=== PATIENT | male | born 1965 | race African-American/Black ===

== ENCOUNTER 2019-08-19 17:56 | Emergency (ER) | payer SELFPAY ==
[~2019-08-19] VITALS: Ht 170.2 cm; Wt 63.5 kg
[2019-08-19 18:52] VITALS: BP 97/60
[2019-08-19] MEDS ORDERED: ORPHENADRINE CITRATE 60 MG/2 ML VIAL. IM ONE (19:30)
[2019-08-19] MEDS ORDERED: KETOROLAC 30 MG/ML VIAL. IM ONE (19:30)
[2019-08-19] MEDS ORDERED: LIDOCAINE (700MG/PATCH) PATCH. TD ONE (19:30)
[2019-08-19 20:30] LABS: BILIRUBIN,URINE SMALL (NEG); CLARITY,URINE CLEAR; COLOR,URINE YELLOW; NITRITE,URINE NEGATIVE (NEG); PH,URINE 5.5; PROTEIN,URINE NEGATIVE (NEG-TRACE)
[2019-08-19 20:49] LABS: BACTERIA,URINE FEW /HPF (0-FEW); SQUAMOUS EPITHELIAL CELL,UR OCC /LPF
[2019-08-19] MEDS ORDERED: NAPR-695 PO (21:21)
[2019-08-19] MEDS ORDERED: LIDO700A21 TP (21:21)
[2019-08-19] MEDS ORDERED: ORPH100T PO (21:21)
--- NOTE | 2019-08-19 21:21 | PHYS DOC ---
Past Medical History Past Medical History: No Pertinent History Alcohol Use: Occasionally Drug Use: Marijuana Adult General Chief Complaint Chief Complaint: BACK PAIN OR INJURY HPI HPI Patient is a 54 year old [f__sex] who presents with [] Review of Systems Review of Systems Constitutional: Denies fever or chills [] Eyes: Denies change in visual acuity, redness, or eye pain [] HENT: Denies nasal congestion or sore throat [] Respiratory: Denies cough or shortness of breath [] Cardiovascular: No additional information not addressed in HPI [] GI: Denies abdominal pain, nausea, vomiting, bloody stools or diarrhea [] : Denies dysuria or hematuria [] Musculoskeletal: Denies back pain or joint pain [] Integument: Denies rash or skin lesions [] Neurologic: Denies headache, focal weakness or sensory changes [] Endocrine: Denies polyuria or polydipsia [] All other systems were reviewed and found to be within normal limits, except as documented in this note. Current Medications Current Medications Current Medications Medications (Trade) Dose Ordered Sig/Servando Start Time Stop Time Status Last Admin Dose Admin Ketorolac Tromethamine (Toradol 30mg Vial) 30 mg 1X ONCE 08/19/19 19:30 08/19/19 20:29 DC 08/19/19 20:26 30 MG Lidocaine (Lidoderm) 1 patch 1X ONCE 08/19/19 19:30 08/19/19 20:29 DC 08/19/19 20:25 1 PATCH Orphenadrine Citrate (Norflex) 60 mg 1X ONCE 08/19/19 19:30 08/19/19 20:29 DC 08/19/19 20:25 60 MG Allergies Allergies Allergies Coded Allergies Type Severity Reaction Last Updated Verified No Known Drug Allergies 08/19/19 No Physical Exam Physical Exam Constitutional: Well developed, well nourished, no acute distress, non-toxic appearance. [] HENT: Normocephalic, atraumatic, bilateral external ears normal, oropharynx moist, no oral exudates, nose normal. [] Eyes: PERRLA, EOMI, conjunctiva normal, no discharge. [] Neck: Normal range of motion, no tenderness, supple, no stridor. [] Cardiovascular:Heart rate regular rhythm, no murmur [] Lungs & Thorax: Bilateral breath sounds clear to auscultation [] Abdomen: Bowel sounds normal, soft, no tenderness, no masses, no pulsatile masses. [] Skin: Warm, dry, no erythema, no rash. [] Back: No tenderness, no CVA tenderness. [] Extremities: No tenderness, no cyanosis, no clubbing, ROM intact, no edema. [] Neurologic: Alert and oriented X 3, normal motor function, normal sensory function, no focal deficits noted. [] Psychologic: Affect normal, judgement normal, mood normal. [] Current Patient Data Vital Signs Vital Signs Date Time Temp Pulse Resp B/P (MAP) Pulse Ox O2 Delivery O2 Flow Rate FiO2 08/19/19 18:52 88 16 97/60 (72) 94 Room Air Lab Values Laboratory Tests Test 08/19/19 20:16 Urine Collection Type Unknown Urine Color Yellow Urine Clarity Clear Urine pH 5.5 Urine Specific [place] >=1.030 Urine Protein Negative mg/dL (NEG-TRACE) Urine Glucose (UA) Negative mg/dL (NEG) Urine Ketones (Stick) Trace mg/dL (NEG) Urine Blood Negative (NEG) Urine Nitrite Negative (NEG) Urine Bilirubin Small (NEG) Urine Urobilinogen Dipstick 1.0 mg/dL (0.2 mg/dL) Urine Leukocyte Esterase Negative (NEG) Urine RBC 1-2 /HPF (0-2) Urine WBC 1-4 /HPF (0-4) Urine Squamous Epithelial Cells Occ /LPF Urine Bacteria Few /HPF (0-FEW) Urine Mucus Slight /LPF EKG EKG [] Radiology/Procedures Radiology/Procedures [] Course & Med Decision Making Course & Med Decision Making Pertinent Labs and Imaging studies reviewed. (See chart for details) [] Dragon Disclaimer Dragon Disclaimer This electronic medical record was generated, in whole or in part, using a voice recognition dictation system. Departure Departure Impression: Primary Impression: Sciatica Disposition: 01 HOME, SELF-CARE Condition: STABLE Referrals: NO PCP (PCP) JOZEF MARTIN MD Patient Instructions: Sciatica, [id number] Additional Instructions: ICE area of pain 20 min on then leave off for next 20 min as needed for next few days. Scripts Lidocaine (Lidocaine PATCH ) 1 Each Adh..patch 1 EACH TP DAILY for FOR LOCAL PAIN, #10 PATCH REMOVE AFTER 12 HOURS Prov: ALEJANDRO VALENCIA DO 08/19/19 Naproxen (NAPROXEN) 375 Mg Tablet 375 MG PO TID PRN PRN for PAIN, #30 TAB Prov: ALEJANDRO VALENCIA DO 08/19/19 Orphenadrine Citrate (ORPHENADRINE CITRATE) 100 Mg Tablet.er 100 MG PO BID PRN for MUSCLE PAIN, #14 TAB Prov: ALEJANDRO VALENCIA DO 08/19/19 Problem Qualifiers Primary Impression: Sciatica Laterality: right Qualified Codes: M54.31 - Sciatica, right side ALEJANDRO VALENCIA DO Aug 19, 2019 21:21
== END 2019-08-19 21:35 | disposition home or self-care (01) ==
LOC: ER 17:56
DX: M54.30 Sciatica, unspecified side (principal); F12.90 Cannabis use, unspecified, uncomplicated
CPT/HCPCS: 81001; 96372; 99284; J1885; J2360